=== PATIENT | male | born 1980 | race Two or more races ===

== ENCOUNTER 2016-08-18 01:28 | Emergency (ER) | payer MEDICAID ==
[~2016-08-18] VITALS: Ht 185.4 cm; Wt 125.3 kg
[~2016-08-18 01:28] MED LIST: IBUP800T PO; MULT-658 PO; [UNRECOGNIZED DRUG - REMARK]
[2016-08-18 02:03] VITALS: BP 126/83
[2016-08-18] MEDS ORDERED: LIDOCAINE 1%, 20ML ONE (02:14)
== END 2016-08-18 04:20 | disposition home or self-care (01) ==
LOC: ED 01:35
DX: S06.0X0A Concussion without loss of consciousness, initial encounter (principal); S01.01XA Laceration without foreign body of scalp, initial encounter; F10.120 Alcohol abuse with intoxication, uncomplicated; M10.9 Gout, unspecified; W10.9XXA Fall (on) (from) unspecified stairs and steps, initial encounter; Y93.89 Activity, other specified; Y92.89 Other specified places as the place of occurrence of the external cause; Y99.8 Other external cause status
CPT/HCPCS: 12002; 70450; 72125

== ENCOUNTER 2016-09-08 12:56 | Emergency (ER) | payer MEDICAID ==
[~2016-09-08] VITALS: Ht 175.3 cm; Wt 124.9 kg
[2016-09-08 14:04] LABS: BLOOD UREA NITROGEN 24 mg/dL (7-18)
[2016-09-08 14:36] VITALS: BP 131/75
== END 2016-09-08 14:38 | disposition home or self-care (01) ==
LOC: ED 14:01
DX: K92.1 Melena (principal); K92.2 Gastrointestinal hemorrhage, unspecified
CPT/HCPCS: 36415; 80048; 82040; 85025; 85610

== ENCOUNTER 2016-10-12 06:15 | Emergency (ER) | payer MEDICAID ==
[~2016-10-12] VITALS: Ht 175.3 cm; Wt 125.1 kg
[2016-10-12 06:17] VITALS: BP 114/76
[2016-10-12] MEDS ORDERED: HYDROcodone/APAP 5/325 TABLET PO PRN (07:30)
== END 2016-10-12 08:31 | disposition home or self-care (01) ==
LOC: ED 08:25
DX: S00.83XA Contusion of other part of head, initial encounter (principal); S80.01XA Contusion of right knee, initial encounter; S90.31XA Contusion of right foot, initial encounter; W06.XXXA Fall from bed, initial encounter; Y93.89 Activity, other specified; Y99.8 Other external cause status; Y92.89 Other specified places as the place of occurrence of the external cause
CPT/HCPCS: 70450; 99284

== ENCOUNTER 2017-03-15 13:58 | Emergency (ER) | payer MEDICAID ==
[~2017-03-15] VITALS: Ht 177.8 cm; Wt 136.2 kg
[~2017-03-15 13:58] MED LIST changes: +IBUP-1223 PO; -IBUP800T PO
[2017-03-15 14:11] VITALS: BP 114/79
[2017-03-15 16:17] LABS: RAPID INFLUENZA A Negative (Negative); RAPID INFLUENZA B Negative (Negative)
== END 2017-03-15 17:58 | disposition home or self-care (01) ==
LOC: ED 16:00
DX: J20.9 Acute bronchitis, unspecified (principal); J06.9 Acute upper respiratory infection, unspecified; F17.200 Nicotine dependence, unspecified, uncomplicated
CPT/HCPCS: 71046; 87400; 93005; 99285

== ENCOUNTER 2018-07-05 16:57 | Emergency (ER) | payer MEDICAID ==
[~2018-07-05] VITALS: Ht 177.8 cm; Wt 132.0 kg
--- NOTE | 2018-07-05 17:29 | NUR ---
pt presents to ED for left axillary abcess present x 4 days. no opening in skin, left axilla swollen and erythematous. pt a&o, resps even and unlabored. bp and spo2 monitors in place .pt seen by SHAHIDA Braun, awaiting US and dispo.
--- NOTE | 2018-07-05 18:03 | NUR ---
report given to kojo Dick.
--- NOTE | 2018-07-05 18:22 | NUR ---
Break RN note: Pt resting in bed, NADN, awaiting recheck.
--- NOTE | 2018-07-05 18:45 | NUR ---
report received from VENICE Dick, all results back. chart up for recheck. awaiting MD and dispo.
[2018-07-05] MEDS ORDERED: LIDOCAINE-MPF 1%, 5ML INFIL ONE (19:00)
[2018-07-05] MEDS ORDERED: LIDOCAINE-MPF 1%, 5ML ONE (19:02)
--- NOTE | 2018-07-05 19:08 | NUR ---
AXEL Mathis at bedside for I&D
[2018-07-05 20:00] VITALS: BP 114/77
--- NOTE | 2018-07-05 20:05 | NUR ---
I&D completed by EDMARA, wound dressed by EDMARA. pt requests norco rx to be changed to ultram, rx changed by AXEL Mathis. pt educated regarding bacrim, keflex and ultram rx. pt given dc instructions and script. pt a&o, resps even and unlabored, nadn at dc. pt amb to dc desk with steady gait.
== END 2018-07-05 20:06 | disposition home or self-care (01) ==
LOC: ED 17:36
DX: L02.412 Cutaneous abscess of left axilla (principal); F17.200 Nicotine dependence, unspecified, uncomplicated
CPT/HCPCS: 10060; 76642; 99284

== ENCOUNTER 2018-07-07 19:15 | Emergency (ER) | payer MEDICAID ==
[~2018-07-07] VITALS: Ht 175.3 cm; Wt 132.9 kg
[2018-07-07 19:17] VITALS: BP 126/78
[2018-07-07] MEDS ORDERED: LIDOCAINE-MPF 1%, 5ML ONE (21:03)
[2018-07-07] MEDS ORDERED: LIDOCAINE-MPF 1%, 5ML INFIL ONE (21:30)
== END 2018-07-07 21:22 | disposition home or self-care (01) ==
LOC: ED 20:41
DX: L03.112 Cellulitis of left axilla (principal); L02.412 Cutaneous abscess of left axilla; F17.200 Nicotine dependence, unspecified, uncomplicated
CPT/HCPCS: 10060; 99283

== ENCOUNTER 2018-07-09 15:23 | Emergency (ER) | payer MEDICAID ==
[~2018-07-09] VITALS: Ht 175.3 cm; Wt 132.9 kg
[2018-07-09 15:53] VITALS: BP 121/83
--- NOTE | 2018-07-09 16:42 | NUR ---
PT. LEFT WITHOUT WOUND CARE OR DISCHARGE INSTRUCTIONS.
== END 2018-07-09 16:47 | disposition home or self-care (01) ==
LOC: ED 16:41
DX: Z48.01 Encounter for change or removal of surgical wound dressing (principal)
CPT/HCPCS: 99283